=== PATIENT | male | born 1980 | race African-American/Black ===

== ENCOUNTER 2017-12-24 20:03 | Emergency (ER) | payer OTHER, MEDICAID ==
[~2017-12-24] VITALS: Ht 177.8 cm; Wt 69.0 kg
[~2017-12-24 20:03] MED LIST: ALBU2.5V13 IH
[2017-12-24 23:25] LABS: BASOPHILS % 0.7 % (0.0-2.0); EOSINOPHILS % 2.4 % (0.0-5.0); HEMOGLOBIN. 14.7 g/dL (14.0-18.0); LYMPHOCYTES % 34.4 % (20.0-50.0); MEAN CORPUSCULAR HEMOGLOBIN 30.8 pg (28.0-32.0); MEAN CORPUSCULAR VOLUME 87.7 fL (80.0-94.0); MEAN PLATELET VOLUME 7.7 fl (7.4-10.4); NEUTROPHILS % 54.5 % (40.0-76.0); PLATELET 401 x1000/uL (130-400); RED BLOOD CELL COUNT 4.79 mill/uL (4.7-6.1); RED CELL DISTRIBUTION WIDTH 12.9 % (11.6-14.6)
[2017-12-24 23:31] LABS: CHLORIDE 112 mEq/L (98-107)
[2017-12-24 23:43] LABS: ETHANOL BLOOD < 10 mg/dL
[2017-12-24 23:45] LABS: CLARITY URINE CLEAR (CLEAR); COLOR URINE YELLOW (YELLOW); KETONES URINE TRACE (NEGATIVE); LEUKOCYTE ESTERASE URINE NEGATIVE (NEGATIVE); NITRITE URINE NEGATIVE (NEGATIVE); OCCULT BLOOD URINE NEGATIVE (NEGATIVE); PROTEIN URINE 1+ (NEGATIVE)
[2017-12-25 00:02] LABS: *AMPHETAMINES SCREEN URINE NEGATIVE (NEGATIVE); *BARBITURATES SCREEN URINE NEGATIVE (NEGATIVE); *BENZODIAZEPINES SCREEN URINE NEGATIVE (NEGATIVE); *COCAINE SCREEN URINE NEGATIVE (NEGATIVE); CANNABINOID URINE SCREEN NEGATIVE (NEGATIVE); METHADONE URINE SCREEN NEGATIVE (NEGATIVE); OPIATES URINE SCREEN NEGATIVE (NEGATIVE); PHENCYCLIDINE URINE SCREEN NEGATIVE (NEGATIVE)
[2017-12-25] MEDS ORDERED: LORAZEPAM 1MG TABLET PO ONE ×2 (06:30→18:30)
[2017-12-25] MEDS ORDERED: HALOPERIDOL 5MG TABLET PO ONE ×2 (06:30→18:30)
[2017-12-26] MEDS ORDERED: LORAZEPAM 1MG TABLET PO ONE (06:15)
[2017-12-26] MEDS ORDERED: HALOPERIDOL 5MG TABLET PO ONE (06:15)
[2017-12-26] MEDS ORDERED: POTASSIUM CHLORIDE 20MEQ TABLET SR PO ONE (15:45)
[2017-12-26] MEDS ORDERED: OLANZAPINE 5MG TABLET ODT PO ONE (20:30)
[2017-12-26 21:00] VITALS: BP 157/89
== END 2017-12-26 21:25 ==
LOC: ER 20:42
DX: F20.9 Schizophrenia, unspecified (principal)
CPT/HCPCS: 36415; 80053; 80178; 80305; 80307; 80329; 81003; 85025; 99285; G0482; J1630; 99284